=== PATIENT | female | born 1980 | race Caucasian/White ===

== ENCOUNTER 2020-12-01 09:18 | Emergency (ER) | payer OTHER ==
[2020-12-01 09:30] VITALS: RESP 18; TEMP 97.9
--- NOTE | 2020-12-01 09:36 | ED ---
General Adult HPI - General Source: patient, EMS, RN notes reviewed Mode of arrival: EMS Limitations: no limitations <Giovany Simmons - Last Filed: 12/01/20 09:35> <Too Alarcon - Last Filed: 12/01/20 21:37> - General Chief complaint: Psychiatric Symptoms Stated complaint: Suicidal Time Seen by Provider: 12/01/20 09:20 - History of Present Illness Initial comments: Patient is a pleasant 40-year-old female presenting to the emergency Department with complaints of depression and suicidal ideation. Patient drink one half of a gallon of alcohol this morning. Patient does have thoughts of self-harm and threatened to cut herself with a knife. No homicidal thoughts. No hallucinations. No new physical complaints. (Giovany Simmons) Review of Systems ROS Other: All systems not noted in ROS Statement are negative. Constitutional: Denies: fever Eyes: Denies: eye pain ENT: Denies: ear pain Respiratory: Denies: cough Cardiovascular: Denies: chest pain Endocrine: Denies: fatigue Gastrointestinal: Denies: abdominal pain Genitourinary: Denies: dysuria Skin: Denies: rash Neurological: Denies: weakness Psychiatric: Reports: depression, suicidal thoughts <Giovany Simmons - Last Filed: 12/01/20 09:35> ROS Other: All systems not noted in ROS Statement are negative. <Too Alarcon - Last Filed: 12/01/20 21:37> ROS Statement: Those systems with pertinent positive or pertinent negative responses have been documented in the HPI. Past Medical History Past Medical History: No Reported History History of Any Multi-Drug Resistant Organisms: None Reported Past Surgical History: No Surgical Hx Reported Smoking Status: Unknown if ever smoked Past Alcohol Use History: Abuse, Daily, Heavy Past Drug Use History: None Reported <Giovany Simmons - Last Filed: 12/01/20 09:35> General Exam Limitations: no limitations General appearance: alert, in no apparent distress Head exam: Present: normocephalic Eye exam: Present: normal appearance, nystagmus Neck exam: Present: normal inspection Respiratory exam: Present: normal lung sounds bilaterally Cardiovascular Exam: Present: regular rate, normal rhythm GI/Abdominal exam: Present: soft. Absent: tenderness Extremities exam: Present: normal inspection. Absent: pedal edema, calf tenderness Neurological exam: Present: alert. Absent: motor sensory deficit Psychiatric exam: Present: depressed Skin exam: Present: normal color. Absent: abrasion <Giovany Simmons - Last Filed: 12/01/20 09:35> Course Vital Signs 12/01/20 12/01/20 09:26 20:24 Temperature 97.9 F Pulse Rate 95 94 Respiratory 18 18 Rate Blood Pressure 143/65 154/69 O2 Sat by Pulse 96 100 Oximetry Medical Decision Making - Lab Data Lab Results 12/01/20 12/01/20 Range/Units 09:46 10:40 POC Glucose (mg/dL) 227 H (75-99) mg/dL POC Glu [employer] ID SAL Verdin Andre Urine Opiates Screen Not Detected (NotDetected) Ur Oxycodone Screen Not Detected (NotDetected) Urine Methadone Screen Not Detected (NotDetected) Ur Propoxyphene Screen Not Detected (NotDetected) Ur Barbiturates Screen Not Detected (NotDetected) U Tricyclic Antidepress Not Detected (NotDetected) Ur Phencyclidine Scrn Not Detected (NotDetected) Ur Amphetamines Screen Not Detected (NotDetected) U Methamphetamines Scrn Not Detected (NotDetected) U Benzodiazepines Scrn Not Detected (NotDetected) Urine Cocaine Screen Not Detected (NotDetected) U Marijuana (THC) Screen Detected H (NotDetected) Disposition <Giovany Simmons - Last Filed: 12/01/20 09:35> Is patient prescribed a controlled substance at d/c from ED?: No <Too Alarcon - Last Filed: 12/01/20 21:37> Clinical Impression: Acute psychosis Disposition: HOME SELF-CARE Condition: Fair Instructions (If sedation given, give patient instructions): Psychotic Disorder (ED) Referrals: Marla Ellsworth MD [Primary Care Provider] - 1-2 days
[2020-12-01 09:49] LABS: Glucose,Whole Blood 227 mg/dL (75-99)
[2020-12-01 11:11] LABS: Amphetamine Screen,Urine Not Detected (NotDetected); Barbiturate Screen,Urine Not Detected (NotDetected); Benzodiazepines Screen,Urine Not Detected (NotDetected); Cocaine Screen,Urine Not Detected (NotDetected); Methadone Screen, Urine Not Detected (NotDetected); Opiate Screen,Urine Not Detected (NotDetected); Oxycodone Screen, Urine Not Detected (NotDetected); Phencyclidine Screen,Urine Not Detected (NotDetected); Tricyclic Antidepressant,Urine Not Detected (NotDetected); Urn Cannabinoid Scrn Detected (NotDetected)
[2020-12-01 20:25] VITALS: BP 154/69; PULSE 94
== END 2020-12-01 20:39 | disposition home or self-care (01) ==
LOC: EC 09:18
DX: F23 Brief psychotic disorder (principal); F32.9 Major depressive disorder, single episode, unspecified; R45.851 Suicidal ideations
CPT/HCPCS: 36415; 80306; 82075; 99285